=== PATIENT | female | born 1970 | race American Indian/Alaskan Native ===

== ENCOUNTER 2017-01-22 07:54 | Day surgery (SDC) | payer OTHER ==
[~2017-01-22 07:54] MED LIST: WATER FOR IRRIG STERILE IR ONE
--- NOTE | 2017-01-22 08:25 | Anesthesia Day of Surgery ---
Anesthesia Day of Surgery - Day of Surgery Patient Examined: Yes Patient H&P Reviewed: Yes Patient is NPO: Yes
--- NOTE | 2017-01-22 08:25 | Anesthesia Consultation ---
Anesthesia Consult and Med Hx Date of service: 01/22/17 - Airway Anesthetic Teeth Evaluation: Good ROM Head & Neck: Adequate Mental/Hyoid Distance: Adequate Mallampati Class: Class II Intubation Access Assessment: Probably Good - Pulmonary Exam CTA: Yes - Cardiac Exam Cardiac Exam: RRR - Pre-Operative Health Status ASA Pre-Surgery Classification: ASA2 Proposed Anesthetic Plan: MAC - Central Nervous System Hx Psychiatric Problems: Yes (anxiety)
[2017-01-22] MEDS ORDERED: DIPRIVAN 10 MG/ML IV ONE (08:56)
--- NOTE | 2017-01-22 09:21 | Post Operative Note ---
Pre-op diagnosis: n/v, early satiety Post-op diagnosis: other (erosions in gastric antrum) Findings: small gastric erosions, moderate erythematous mucosa in antrum, otherwise normal EGD Procedure: EGD with biopsies Anesthesia: MAC Surgeon: CHELSEY RODRIGUEZ Estimated blood loss: minimal Pathology: list Specimen disposition: to lab Condition: stable Disposition: same day
--- NOTE | 2017-01-22 09:41 | Operative Report ---
PREOPERATIVE DIAGNOSES: Nausea, vomiting, early satiety and abdominal pain. POSTOPERATIVE DIAGNOSES: Small gastric erosions in the antrum, moderate erythematous mucosa in the antrum. ANESTHESIA: Monitored anesthesia care. COMPLICATIONS: No immediate complications. ESTIMATED BLOOD LOSS: Minimal. DESCRIPTION OF PROCEDURE: After consent was obtained, the patient was placed in left lateral decubitus position. The standard upper Fujinon scope was advanced with direct vision through the mouth and advanced to the second portion of duodenum without difficulty. The patient tolerated the procedure well. The views of the mucosa were good. FINDINGS: The esophagus appeared normal. The Z-line was regular and at 40 cm. There were small gastric erosions in the antrum of the stomach, moderately erythematous mucosa in the antrum. Multiple biopsies were obtained to evaluate for H. pylori. Otherwise, the stomach appeared normal. The duodenum appeared normal. Random biopsies were obtained to rule out celiac disease. IMPRESSION: Erosive gastropathy in the antrum. Biopsies obtained to evaluate for H. pylori. Otherwise, unremarkable esophagogastroduodenoscopy. RECOMMENDATIONS: 1. Followup pathology results. 2. Avoid NSAID medications. 3. Continue PPI daily. 4. Follow up in GI clinic in 4 weeks. JOB# [id number] RAMEZ/NTS
--- NOTE | 2017-01-22 10:39 | Post Anesthesia Evaluation ---
- Post Anesthesia Evaluation Patient Participated: No Airway Patent: Yes Stable Respiratory Function: Yes Nausea/Vomiting: No Temp > 96.8F: Yes Pain Manageable: Yes Adequeate Hydration: Yes Anesthesia Complications: No Block Receding Appropriately: Not Applicable Patient on Ventilator: No
[2017-01-22 16:05] VITALS: BP 101/70
== END 2017-01-22 07:55 | disposition home or self-care (01) ==
LOC: GIO 07:54
PROVIDERS: ATTEND Internal Medicine Gastroenterology
DX: K29.40 Chronic atrophic gastritis without bleeding (principal); K31.89 Other diseases of stomach and duodenum; K22.8 Other specified diseases of esophagus; F41.9 Anxiety disorder, unspecified
CPT/HCPCS: 43239; 88305; 88342; J2704